=== PATIENT | female | born 1970 | race Caucasian/White ===

== ENCOUNTER → 2018-01-04 | Outpatient (CLI) | payer OTHER ==
--- NOTE | 2018-01-07 10:23 | MM ---
Reason for exam: screening (asymptomatic). Baseline mammogram. Physical Findings: Nurse did not find any significant physical abnormalities on exam. MG 3D Screening Mammo W/Cad Bilateral CC and MLO view(s) were taken. The breast tissue is heterogeneously dense. This may lower the sensitivity of mammography. Grouped and regional calcifications bilaterally. Tightly grouped calcifications on the right at 6 o'clock and upper outer quadrant. On the left at 6 o'clock possible partially obscured mass. These results were verbally communicated with the patient and result sheet given to the patient on 01/04/18. ASSESSMENT: Incomplete: need additional imaging evaluation, BI-RAD 0 RECOMMENDATION: Special view mammogram of both breasts. (Magnification views) Ultrasound of the left breast. (5-7 o'clock) [facility] will attempt to contact patient to return for supplemental views and ultrasound.
--- NOTE | 2018-01-07 10:26 | MM ---
Reason for exam: additional evaluation requested from abnormal screening. Physical Findings: Breast exam preformed at baseline screening. MG 3D Work Up W/Cad NIKKO Bilateral CC with magnification and ML with magnification view(s) were taken. The breast tissue is heterogeneously dense. This may lower the sensitivity of mammography. Tight heterogeneous grouped calcification 6 o'clock. Multiple grouped calcifications elsewhere especially upper outer quadrant. Two sites can be sampled. Left 6 o'clock heterogeneous grouped calcifications. Partially obscured nodule persists 6 o'clock position. These results were verbally communicated with the patient and result sheet given to the patient on 01/04/18. ASSESSMENT: Incomplete: need additional imaging evaluation, BI-RAD 0 RECOMMENDATION: Ultrasound of the left breast. (5-7 o'clock) KIRSTIND
--- NOTE | 2018-01-07 10:29 | USB ---
Reason for exam: additional evaluation requested from abnormal screening. US Breast Workup Limited LT Scanning from 3-7 o'clock with particular attention to 6:00. Left breast ultrasound demonstrates a 0.6 x 0.5 x 0.3cm oval, cystic cluster at 3 o'clock, a 0.3 x 0.5 x 0.3cm oval, cystic cluster at 5 o'clock and a 0.3 x 0.3 x 0.2cm oval, cystic lesion at 5 o'clock. Benign. No abnormality seen at 6 o'clock. 6 month follow up left breast mammogram recommended in addition to stereotactic bilateral breast biopsies for calcifications. These results were verbally communicated with the patient and result sheet given to the patient on 01/04/18. ASSESSMENT: Suspicious, BI-RAD 4 RECOMMENDATION: Stereotactic core biopsy of both breast (calcifications). (right 2 sites, left 1 site) Called Dr[address] Cisse with mammographic findings and has scheduled an appointment for the patient for 01/10/18 at 10:[address] Marks. PRELIMINARY REPORT CALLED AND FAXED TO DR. MARKS ON 01/07/18. [facility]
== END | disposition home or self-care (01) ==
LOC: RADMAMWWP 14:03
PROVIDERS: ATTEND Obstetrics & Gynecology
DX: Z12.31 Encounter for screening mammogram for malignant neoplasm of breast (principal); R92.8 Other abnormal and inconclusive findings on diagnostic imaging of breast
CPT/HCPCS: 77067; 77066; 77063; 76642; G0279

== ENCOUNTER → 2018-01-15 | Day surgery (SDC) | payer OTHER ==
[2018-01-15 07:51] VITALS: RESP 16; BMI 25.0
[2018-01-15 12:45] VITALS: BP 113/75; PULSE 78; TEMP 97.5
--- NOTE | 2018-01-17 09:10 | MM ---
EXAMINATION TYPE: MG stereo VAD BX RT, MG stereo VAD BX addl RT, MG stereo VAD BX addl LT DATE OF EXAM: 01/15/2018 COMPARISON: Exams dating back to 01/04/2018 CLINICAL HISTORY: Request from surgical biopsy of 3 groups of indeterminate calcifications, one within the left breast and 2 within the right breast. TECHNIQUE: 3 site stereotactic guided core biopsy of right and left breasts. FINDINGS: The procedure of stereotactic guided core biopsy was explained to the patient. Benefits, alternatives, and risks were discussed. An informed consent was then obtained. Preprocedural timeout was performed. Site A (left): The shortness pathway for biopsy was chosen. Shortness pathway was inferior approach. The heterogenous group of lower inner quadrant calcifications were targeted and 8 cc of lidocaine without epinephrine and 2 cc of lidocaine with epinephrine were utilized to anesthetize the skin surface, subcutaneous tissues and site of biopsy respectively with epinephrine only utilized at the site of biopsy. Subsequently a vacuum assisted device was utilized to obtain 10 samples. Specimen radiograph confirmed the targeted calcifications within the specimen. Securemark T-shaped biopsy marker was then placed, confirmed to be in appropriate position I postprocedural mammogram. The patient tolerated the procedure well without any immediate complication. Site B (right): The shortness pathway for biopsy was chosen. Shortness pathway was inferior approach. The heterogenous group of lower central right breast calcifications at the 6:00 position were targeted and 8 cc of lidocaine without epinephrine and 2 cc of lidocaine with epinephrine were utilized to anesthetize the skin surface, subcutaneous tissues and site of biopsy respectively with epinephrine only utilized at the site of biopsy. Subsequently a vacuum assisted device was utilized to obtain 7 samples. Specimen radiograph confirmed the targeted calcifications within the specimen. Securemark T-shaped biopsy marker was then placed, confirmed to be in appropriate position I postprocedural mammogram. The patient tolerated the procedure well without any immediate complication. Site C (right): The shortness pathway for biopsy was chosen. Shortness pathway was lateral to medial approach. The group of central outer calcifications were targeted and 8 cc of lidocaine without epinephrine and 3 cc of lidocaine with epinephrine were utilized to anesthetize the skin surface, subcutaneous tissues and site of biopsy respectively with epinephrine only utilized at the site of biopsy. Subsequently a vacuum assisted device was utilized to obtain 9 samples. Specimen radiograph confirmed the targeted calcifications within the specimen. Standard bowtie (dumbbell-shaped) biopsy marker was then placed, confirmed to be in appropriate position I postprocedural mammogram. The patient tolerated the procedure well without any immediate complication. The patient was kept in the radiology department for short stay after the procedure and then discharged home in stable condition. IMPRESSION: SUCCESSFUL, UNCOMPLICATED 3 SITE BILATERAL STEREOTACTIC GUIDED CORE BIOPSY DESCRIBED ABOVE, FULL PATHOLOGY RESULTS TO FOLLOW. Pathology Results: Benign A. BREAST, LEFT, SITE A 6:00, CORE BIOPSY: PROLIFERATIVE FIBROCYSTIC CHANGES INCLUDING NODULAR SCLEROSING ADENOSIS WITH CALCIFICATIONS, FIBROSIS AND CYSTS. B. BREAST, RIGHT, SITE B 6:00, CORE BIOPSY: PROLIFERATIVE FIBROCYSTIC CHANGES INCLUDING NODULAR SCLEROSING ADENOSIS WITH CALCIFICATIONS, FOCAL HYALINIZATION/ SCAR, CYSTS, FIBROSIS AND APOCRINE METAPLASIA. C. BREAST, RIGHT, SITE C, UPPER OUTER, CORE BIOPSY: FIBROCYSTIC CHANGES INCLUDING SCLEROSING ADENOSIS WITH CALCIFICATIONS, FIBROSIS AND CYSTS. Recommendation Follow up mammogram of both breasts in 6 months. NAUN
== END ==
LOC: RADMAMWWP 07:20
PROVIDERS: ATTEND Surgery
DX: N60.22 Fibroadenosis of left breast (principal); R92.1 Mammographic calcification found on diagnostic imaging of breast; N60.32 Fibrosclerosis of left breast; N60.82 Other benign mammary dysplasias of left breast
CPT/HCPCS: 88305; 19081; 19082 ×2; A4648; J2001

== ENCOUNTER → 2018-07-09 | Outpatient (CLI) | payer OTHER ==
--- NOTE | 2018-07-09 15:20 | MM ---
Reason for exam: follow-up at short interval from prior study. Last mammogram was performed 6 months ago. History: Benign MG stereo VAD BX addl LT of the left breast, January 15, 2018. Benign MG stereo VAD BX addl RT of the right breast, January 15, 2018. Benign MG stereo VAD BX RT of the right breast, January 15, 2018. Physical Findings: Nurse did not find any significant physical abnormalities on exam. MG 3D Diag Mammo W/Cad NIKKO Bilateral CC and MLO view(s) were taken. Prior study comparison: January 04, 2018, bilateral MG 3d work up w/cad NIKKO. January 04, 2018, bilateral MG 3d screening mammo w/cad. The breast tissue is heterogeneously dense. This may lower the sensitivity of mammography. No significant new finding since prior exams. These results were verbally communicated with the patient and result sheet given to the patient on 07/09/18. ASSESSMENT: Negative, BI-RAD 1 RECOMMENDATION: Routine screening mammogram of both breasts in 1 year.
== END | disposition home or self-care (01) ==
LOC: RADMAMWWP 10:19
PROVIDERS: ATTEND Surgery
DX: R92.8 Other abnormal and inconclusive findings on diagnostic imaging of breast (principal)
CPT/HCPCS: 77062; 77066

== ENCOUNTER → 2019-09-23 | Outpatient (CLI) | payer OTHER ==
--- NOTE | 2019-09-24 14:59 | MM ---
Reason for exam: screening (asymptomatic). Last mammogram was performed 1 year and 2 months ago. History: Benign MG stereo VAD BX addl LT of the left breast, January 15, 2018. Benign MG stereo VAD BX addl RT of the right breast, January 15, 2018. Benign MG stereo VAD BX RT of the right breast, January 15, 2018. Physical Findings: A clinical breast exam by your physician is recommended on an annual basis and results should be correlated with mammographic findings. MG 3D Screening Mammo W/Cad Bilateral CC and MLO view(s) were taken. Prior study comparison: July 09, 2018, bilateral MG 3d diag mammo w/cad NIKKO. January 04, 2018, bilateral MG 3d work up w/cad NIKKO. The breast tissue is extremely dense which could obscure a lesion on mammography. Benign appearing bilateral calcifications. No suspicious abnormality. Bilateral biopsy markers noted. No significant changes when compared with prior studies. ASSESSMENT: Benign, BI-RAD 2 RECOMMENDATION: Routine screening mammogram of both breasts in 1 year.
== END | disposition home or self-care (01) ==
LOC: RADMAMWWP 10:10
PROVIDERS: ATTEND Obstetrics & Gynecology
DX: Z12.31 Encounter for screening mammogram for malignant neoplasm of breast (principal)
CPT/HCPCS: 77063; 77067

== ENCOUNTER → 2020-04-01 | Outpatient (CLI) | payer OTHER ==
--- NOTE | 2020-04-01 15:05 | MR ---
EXAMINATION TYPE: MR shoulder RT wo con DATE OF EXAM: 04/01/2020 COMPARISON: Right shoulder x-ray 2 days ago HISTORY: Chronic rt shoulder pain x 10 yrs, no trauma TECHNIQUE: Multiplanar, multisequence imaging of the right shoulder is performed without contrast. FINDINGS: Suboptimal study as patient unable to hold still with motion artifact degradation present. Rotator Cuff: Some tearing involving the anterior fibers of the distal supraspinatus tendon with surr ounding fluid . Infraspinatus tendon is intact. Increased signal and thickening distal subscapularis tendon. Rotator cuff muscle bulk preserved. Acromioclavicular Joint: Moderate to severe narrowing with mild to moderate capsular hypertrophy. No significant spurring. Underlying fat plane maintained. Distal acromion morphology unremarkable. Glenohumeral Joint: Moderate narrowing. Small joint effusion. No significant spurring. Labrum: The superior labrum shows irregular increased signal suspicious degenerative tear for referen ce coronal image 13. Biceps Tendon: The long head of biceps is in normal location within bicipital groove. Bone marrow signal: Some increased signal at the acromioclavicular joint could reflect inflammatory c hange. Other: There appears to be loss of normal fat in the rotator cuff interval reference sagittal image 1 3. Thickening of the inferior glenohumeral ligament is present. IMPRESSION: 1. MRI evidence suggestive of adhesive capsulitis. Correlate clinically. 2. Partial tearing of anterior fibers supraspinatus tendon. Chronic tendinosis subscapularis tendon. No full-thickness rotator cuff tear. 3. Mild to moderate degenerative changes as detailed above. Acromioclavicular joint inflammatory anderson ge felt present.
== END | disposition home or self-care (01) ==
LOC: RADMRIMAIN 12:56
PROVIDERS: ATTEND Orthopaedic Surgery
DX: S46.811A Strain of other muscles, fascia and tendons at shoulder and upper arm level, right arm, initial encounter (principal); M19.019 Primary osteoarthritis, unspecified shoulder

== ENCOUNTER → 2020-05-03 | Outpatient (CLI) | payer OTHER ==
[2020-05-03 09:11] LABS: Basophils % (A) 0 %; Eosinophils # (A) 0.3 k/uL (0-0.7); Eosinophils % (A) 3 %; HGB 15.1 gm/dL (11.4-16.0); Lymphocytes % (A) 21 %; MCH 31.8 pg (25.0-35.0); MCHC 33.7 g/dL (31.0-37.0); MCV 94.5 fL (80.0-100.0); Mean Platelet Volume 7.2; Monocytes # (A) 0.6 k/uL (0-1.0); Monocytes % (A) 6 %; Neutrophils # (A) 6.5 k/uL (1.3-7.7); Neutrophils % (A) 68 %; Platelet Count 358 k/uL (150-450); RBC 4.76 m/uL (3.80-5.40); WBC 9.5 k/uL (3.8-10.6)
== END | disposition home or self-care (01) ==
LOC: LABPAT 08:16
PROVIDERS: ATTEND Orthopaedic Surgery
DX: Z01.818 Encounter for other preprocedural examination (principal); M75.41 Impingement syndrome of right shoulder
CPT/HCPCS: 36415; 80051; 85025; 93005

== ENCOUNTER 2020-05-06 07:45 | Day surgery (SDC) | payer OTHER ==
[2020-05-04 14:53] VITALS: BMI 24.3
--- NOTE | 2020-05-05 17:47 | HP ---
HISTORY AND PHYSICAL DATE OF SURGERY: 05/06/2020 Sammi Lopez is 49-year-old patient seen with progressive right shoulder pain. We discussed options for treatment. She elected to proceed with arthroscopy. Consent regarding the procedure was obtained. PAST MEDICAL HISTORY: Hypothyroidism, depression. PAST SURGICAL HISTORY: Tubal ligation, herniorrhaphy. DAILY MEDICATIONS: Levothyroxine. ALLERGIES: NONE. SOCIAL HISTORY: She smokes cigarettes. PHYSICAL EVALUATION OF THE RIGHT SHOULDER: Flexion 140 degrees, abduction 120 degrees. External rotation is 30 degrees with pain and weakness. There is tenderness along the anterolateral acromion and rotator cuff insertion site. Impingement is positive at 90 degrees. Drop-arm sign is positive. Distal neurovascular exam is intact. RADIOGRAPHS: Radiographs of the right shoulder revealed a type 2 anterior acromion and acromioclavicular joint osteoarthritis. An MRI of her right shoulder revealed partial rotator cuff tendon tear and severe acromioclavicular joint osteoarthritis. IMPRESSION: 1. Right shoulder impingement with rotator cuff tear. 2. Right shoulder acromioclavicular joint osteoarthritis. 3. Hypothyroidism. 4. Tobacco use. PLAN: Right shoulder arthroscopy, subacromial decompression, arthroscopic rotator cuff repair, arthroscopic Danielle procedure and debridement. MMODL / IJN: [id number] /
[~2020-05-06 07:45] MED LIST: DEXAMETHASONE SOD PHOSPHATE 10 MG/ML 1 ML VIAL IV ONE; HYDROmorphone 0.5 MG/0.5 ML SYRINGE IVP PRN; LACTATED RINGERS 1,000 ML IV SCH; LIDOCAINE 1% (10MG/ML) FOR IV START INTRADERMA PRN; MIDAZOLAM 2 MG/2 ML VIAL IV ONE; ONDANSETRON 4 MG/2 ML VIAL IVP ONE
[2020-05-06] MEDS ORDERED: DEXAMETHASONE SOD PHOSPHATE 4 MG/ML 1 ML VIAL ONE (09:00)
[2020-05-06] MEDS ORDERED: fentaNYL (PF) 50 MCG/ML 2 ML AMP ONE (09:00)
[2020-05-06] MEDS ORDERED: SUCCINYLCHOLINE CHLORIDE 100 MG/5 ML SYR IV ONE (09:00)
[2020-05-06] MEDS ORDERED: LIDOCAINE 1% INJ 10MG/ML (20 ML MDV) ONE (09:00)
[2020-05-06] MEDS ORDERED: PROPOFOL 10 MG/ML 20 ML VIAL IV ONE (09:00)
[2020-05-06] MEDS ORDERED: ROPIVACAINE 5 MG/ML 30 ML VIAL ONE (09:00)
[2020-05-06] MEDS ORDERED: LACTATED RINGERS 1,000 ML IV ONE (10:00)
--- NOTE | 2020-05-06 10:09 | P.OP ---
Date of Procedure: 05/06/20 Preoperative Diagnosis: Right shoulder impingement Postoperative Diagnosis: 1. Right shoulder rotator cuff tear 2. Right shoulder impingement 3. Right shoulder acromioclavicular joint osteoarthritis 4. Right shoulder partial long head biceps tendon tear Procedure(s) Performed: 1. Right shoulder arthroscopic rotator cuff repair 2. Right shoulder arthroscopic subacromial decompression 3. Right shoulder arthroscopic Danielle procedure 4. Right shoulder arthroscopic biceps tenotomy Implants: 14.75 Arthrex swivel lock anchor Surgeon: Milton House Needle Loom Operator Helper #1: Suleman Be Estimated Blood Loss (ml): 7 Pathology: none sent Condition: stable Disposition: PACU Indications for Procedure: 49-year-old patient seen with progressive right shoulder pain. After treatment options were discussed, she elected to proceed with arthroscopy. Operative Findings: See description of procedure Description of Procedure: Patient underwent an interscalene block by department of anesthesia. The patient was then taken to the operative suite. The patient underwent a general anesthetic by the department of anesthesia. The patient was placed into a lateral position and secured. There was appropriate padding of the bony prominence. Right shoulder was then prepped and draped in normal sterile orthopedic fashion. We placed the extremity in 10 pounds of longitudinal traction. A posterior incision was now made for a posterior working portal site. The trocar and cannula were inserted into the glenohumeral joint. Arthroscopy was initiated. Spinal needle was now inserted anteriorly, to ascertain the anterior working portal site. An incision was now made in that area, a trocar was inserted followed by a probe. There was some partial tearing and hyperemia long head biceps tendon. There was a rotator cuff tear that we clearly visualized from glenohumeral joint. The labrum was probed and found to be stable. I performed an arthroscopic biceps tenotomy. The labrum was again probed and found to be stable. Instruments now removed from glenohumeral joint. Utilizing the posterior working portal site, the trocar and cannula were inserted into the subacromial space. Arthroscopy initiated. I made an incision 2 fingerbreadths lateral to the acromion. I introduced my trocar followed by my ArthroCare ablator. I now began ablating thick subacromial bursal tissue, which exposed the undersurface of the anterior acromion. There was diminished subacromial space. There was a very prominent anterior acromion. A motorized bur was introduced and a subacromial decompression was performed. I also excised some osteophytes off the inferior aspect of the distal clavicle. The AC joint was visualized and noted to be fairly arthritic. The motorized bur was introduced in the anterior portal site and a Danielle procedure was performed without difficulty, decompressing the AC joint nicely. I turned my attention to the rotator cuff. There was a 11.5 cm rotator cuff tear. I debrided the m argins getting down to stable tendon tissue. I introduced my motorized bur and abraded the footprint area, getting some petechial bleeding. I passed 2 everted mattress sutures through good bites of rotator cuff tendon. I now punched to holes in the area of the footprint for insertion of anchor. All 4 limbs of suture were passed through the eyelet of a 4.75 Arthrex a lock anchor. The eyelet was now placed into the pre-punch hole and I held it in position while Louis WADE tensioned all sutures and the deployed the anchor with good fixation noted. All residual suture limbs were now clipped. We had good compression of the tendon along the entire footprint. I injected 1 mL Renyte intra-articular. Instruments now removed from the portal sites. All portal sites were approximated with nylon suture. Sterile dressings were applied followed by a shoulder immobilizer. Suleman WADE assisted in this complex case. The patient was awakened, transferred to a bed, and taken to recovery in stable condition.
[2020-05-06 10:19] VITALS: TEMP 96.8
[2020-05-06 10:39] VITALS: RESP 16
[2020-05-06 11:33] VITALS: BP 110/70; PULSE 68
--- NOTE | 2020-05-07 08:59 | P.ANPRN ---
Procedure Note - Anesthesia - Nerve Block Performed Right Interscalene Single Time Out Performed: Yes Date of Procedure: 05/06/20 Procedure Start Time: :41 Procedure Stop Time: :45 Location of Patient: PreOp Indication: Acute Post-Operative Pain, Requested by Surgeon Sedation Type: Sedate with meaningful contact maintained Preparation: Sterile Prep Position: Supine Needle Types: Pajunk Needle Gauge: 21 Ultrasound used to visualize needle placement: Yes Ultrasound used to observe medication spread: Yes Blood Aspirated: No Pain Paresthesia on Injection Noted: No Resistance on Injection: Normal Image Stored and Saved: Yes Events: Uneventful and Well Tolerated (ropi .5% 30 cc plus dexamethasone 4mg)
== END 2020-05-06 11:49 | disposition home or self-care (01) ==
LOC: OR 07:45
PROVIDERS: ATTEND Orthopaedic Surgery
DX: M75.101 Unspecified rotator cuff tear or rupture of right shoulder, not specified as traumatic (principal); M19.011 Primary osteoarthritis, right shoulder; M25.711 Osteophyte, right shoulder; M75.41 Impingement syndrome of right shoulder; E03.9 Hypothyroidism, unspecified; F32.9 Major depressive disorder, single episode, unspecified; F17.210 Nicotine dependence, cigarettes, uncomplicated; Z98.51 Tubal ligation status; Z98.890 Other specified postprocedural states; Z97.2 Presence of dental prosthetic device (complete) (partial); Z79.890 Hormone replacement therapy; Z79.899 Other long term (current) drug therapy
CPT/HCPCS: 29826; 29827; 29824; 64415; 81025; 76942; C1713; Q4212; J2250; J1100 ×2; J2405; J0690; J2001; J3010; J2795; J0330; J2704

== ENCOUNTER → 2023-11-27 | Outpatient (CLI) | payer OTHER ==
--- NOTE | 2023-11-27 15:31 | XR ---
EXAMINATION TYPE: XR chest 2V DATE OF EXAM: 11/27/2023 COMPARISON: None HISTORY: 52-year-old female R05.9, unspecified cough, former smoker TECHNIQUE: Frontal and lateral views FINDINGS: The cardiomediastinal silhouette, aorta, and pulmonary vasculature are within normal limits. Hyperinf lation. Old right-sided rib fracture deformities. Some strandy atelectasis at the left base. Otherwis e, lungs and pleural spaces are clear. IMPRESSION: No acute cardiopulmonary process.
--- NOTE | 2023-11-28 17:11 | MM ---
Reason for Exam: Screening (asymptomatic). Last mammogram was performed 4 year(s) and 2 month(s) ago. Patient History: Menarche at age 12. First Full-Term at age 18. Postmenopausal. 01/15/2018, Benign Core Biopsy on the right side. 01/15/2018, Benign Core Biopsy on the left side. 01/15/2018, Benign Core Biopsy on the right side. Risk Values: Hodan 5 year model risk: 1.2%. NCI Lifetime model risk: 9.2%. Prior Study Comparison: 01/04/2018 Bilateral Diagnostic Mammogram, [facility]. 07/09/2018 Bilateral Diagnostic Mammogram, [facility]. 09/23/2019 Bilateral Screening Mammogram, [facility]. Tissue Density: The breast tissue is heterogeneously dense. This may lower the sensitivity of mammography. Findings: Analyzed By CAD. Pattern appears symmetrical. There are multiple scattered calcifications present bilaterally. Stereotactic core markers are present in the bilateral breasts. No new suspicious cluster of calcifications is identified. No suspicious groups of microcalcifications, spiculated or lobular masses, architectural distortion or other secondary signs of malignancy are mammographically apparent. Overall Assessment: Benign, BI-RAD 2 Management: Screening Mammogram of both breasts in 1 year. A negative mammogram report should not preclude additional follow up of suspicious palpable abnormalities. Patient should continue monthly self breast exam. A clinical breast exam by your physician is recommended on an annual basis and results should be correlated with mammographic findings. Electronically signed and approved by: Anatoliy Melton D.O. Radiologis
== END | disposition home or self-care (01) ==
LOC: RADMAMWWP 11:05
PROVIDERS: ATTEND Family Medicine
DX: Z12.31 Encounter for screening mammogram for malignant neoplasm of breast (principal); R05.9 Cough, unspecified; Z78.0 Asymptomatic menopausal state; Z87.891 Personal history of nicotine dependence
CPT/HCPCS: 71046; 77063; 77067

== ENCOUNTER → 2025-02-06 | Outpatient (CLI) | payer OTHER ==
--- NOTE | 2025-02-06 15:19 | MM ---
Reason for Exam: Screening (asymptomatic). Last mammogram was performed 1 year(s) and 2 month(s) ago. Patient History: Menarche at age 12. First Full-Term at age 18. Postmenopausal. 01/15/2018, Benign Core Biopsy on the right side. 01/15/2018, Benign Core Biopsy on the left side. 01/15/2018, Benign Core Biopsy on the right side. Risk Values: Hodan 5 year model risk: 1.3%. NCI Lifetime model risk: 8.9%. Prior Study Comparison: 07/09/2018 Bilateral Diagnostic Mammogram, [facility]. 09/23/2019 Bilateral Screening Mammogram, [facility]. 11/27/2023 Bilateral MG 3D screening mammo w/cad, [facility]. Tissue Density: The breasts are heterogeneously dense, which may obscure small masses. Findings: Analyzed By CAD. Mammotome biopsy clips bilaterally are redemonstrated. There are persistent tiny benign-appearing round calcifications bilaterally redemonstrated. Benign-appearing bilateral axillary lymph nodes are again seen. There is no suspicious new distortion or new suspicious mass in either breast. Overall Assessment: Benign, BI-RAD 2 Management: Screening Mammogram of both breasts in 1 year. Some advise annual bilateral breast ultrasound surveillance in patients with background dense tissue. Patient should continue monthly self-breast exams. A clinical breast exam by your physician is recommended on an annual basis. This exam should not preclude additional follow-up of suspicious palpable abnormalities. Note on Hodan scores and lifetime risk: 1. A Hodan score greater than 3% is considered moderate risk. If this is the case, consider specialist referral to assess eligibility for a risk reducing agent. 2. If overall lifetime risk for the development of breast cancer is 20% or higher, the patient may qualify for future screening with alternating mammogram and breast MRI. [facility], , 02/06/2025 3:16 PM. Electronically signed and approved by: Beau Sanders M.D.
== END | disposition home or self-care (01) ==
LOC: RADMAMWWP 14:26
PROVIDERS: ATTEND Family Medicine
DX: Z12.31 Encounter for screening mammogram for malignant neoplasm of breast (principal); R92.333 Mammographic heterogeneous density, bilateral breasts; Z78.0 Asymptomatic menopausal state
CPT/HCPCS: 77063; 77067